=== PATIENT | female | born 1945 | race Caucasian/White ===

== ENCOUNTER 2024-01-05 07:56 | Inpatient (IN) | payer OTHER ==
[~2024-01-05] VITALS: Ht 162.6 cm; Wt 72.0 kg
[~2024-01-05 07:56] MED LIST: AMLO1TAB23 PO; ATOR10TA PO; CHOL20004 PO; HYDR-4072 PO; IBUP-1456 PO; LOSA-534 PO; MONT-8 OR; OMEP-448 PO; SERT-206 PO; ZINC50TA7 PO
[2024-01-05] MEDS ORDERED: HYDROmorphone HCL 2 MG/ML VL/or syr ONE (10:25)
[2024-01-05] MEDS ORDERED: fentaNYL CITRATE 100 MCG/2 ML VL ONE ×2 (10:26→15:48)
[2024-01-05] MEDS ORDERED: GLYCOPYRROLATE 0.2 MG/ML 1ML VIAL ONE (10:26)
[2024-01-05] MEDS ORDERED: ROCURONIUM 10MG/ML 10ML VIAL IV ONE ×2 (10:26→13:52)
[2024-01-05] MEDS ORDERED: KETOROLAC TROMETH 30 MG/ML 1ML VIAL ONE (10:26)
[2024-01-05] MEDS ORDERED: ONDANSETRON HCL 4 MG/2 ML VIAL ONE (10:26)
[2024-01-05] MEDS ORDERED: MIDAZOLAM HCL 2MG/2ML 2ml VIAL (1mg/ml) ONE (10:26)
[2024-01-05] MEDS ORDERED: LIDOCAINE 1% INJ PF 5ML AMP ONE (10:26)
[2024-01-05] MEDS ORDERED: ePHEDrine SULFATE 50 MG/ML AMP ONE (10:26)
[2024-01-05] MEDS ORDERED: DexAMETHasone SOD PHOS 10MG/1ML VIAL INJ ONE (10:26)
[2024-01-05] MEDS: TRANEXAMIC ACID 20 ML ONE (10:28)
[2024-01-05] MEDS: PROPOFOL 100 ML IV ONE (10:28)
[2024-01-05] MEDS: LIDOCAINE W/ EPINEPHRINE 1% 20ML VIAL ONE (10:28)
[2024-01-05] MEDS ORDERED: KETAMINE 50mg/ML 1ml syringe ONE (10:31)
[2024-01-05] MEDS ORDERED: SUGAMMADEX 200mg/2ml Vial (100MG/ML) IV ONE (10:32)
[2024-01-05] MEDS: levoFLOXacin 750MG 150 ML IV ONE (10:45)
[2024-01-05] MEDS ORDERED: NITROGLYCERIN 0.4 MG SL TAB SL PRN (16:30)
[2024-01-05] MEDS ORDERED: ACETAMINOPHEN 325 MG TAB PO PRN (16:30)
[2024-01-05] MEDS ORDERED: MORPHINE SULFATE INJ 2 MG/ml SYRG IV PRN (16:30)
[2024-01-05 16:54] VITALS: O2SAT 93
[2024-01-05] MEDS: METOCLOPRAMIDE HCL 5MG/ml INJ 2ml VIAL IV ONE (17:00)
[2024-01-05] MEDS ORDERED: HYDROmorphone HCL 2 MG/ML VL/or syr IV PRN (17:00)
[2024-01-05] MEDS ORDERED: fentaNYL CITRATE 100 MCG/2 ML VL IV PRN (17:00)
[2024-01-05] MEDS: HYDROmorphone HCL 2 MG/ML VL/or syr ONE (17:05)
[2024-01-05] MEDS: HYDROmorphone HCL 2 MG/ML VL/or syr IV PRN (17:05)
[2024-01-05] MEDS: MORPHINE SULFATE INJ 2 MG/ml SYRG IV PRN ×2 (17:21→20:54)
[2024-01-05 18:30] VITALS: BP 147/71; PULSE 86; RESP 17; TEMP 97.6; O2SAT 96
[2024-01-05 19:37] LABS: Hematocrit 33.7 % (36.0-46.0); Hemoglobin 11.1 g/dL (12.2-16.2)
[2024-01-05 19:47] VITALS: PULSE 86; RESP 17
[2024-01-05 20:00] VITALS: PULSE 87; PULSE 95; RESP 16; O2SAT 97
[2024-01-05 21:00] VITALS: BP 133/37; PULSE 95; RESP 16; TEMP 97.5; O2SAT 97
[2024-01-05] MEDS: D5W/SOD CHLO 0.9% 1,000 ML IV SCH (21:20)
[2024-01-05] MEDS: ceFAZolin 1GM/50ML 50 ML IV SCH (21:35)
[2024-01-05] MEDS: DOCUSATE SOD 100 MG CAP PO SCH (21:37)
[2024-01-06] VITALS (8 sets, daily range): BP systolic 103–157; BP diastolic 54–75; PULSE 61–82; RESP 16–18; TEMP 97.6–98.5; O2SAT 92–99
[2024-01-06] MEDS: HYDROcodone-ACET 10/325MG TAB PO PRN (00:17)
[2024-01-06] MEDS: CYCLOBENZAPRINE HCL 10 MG TAB PO SCH (14:30)
[2024-01-06] MEDS: CYCLOBENZAPRINE HCL 10 MG TAB PO ONE (14:35)
[2024-01-06] MEDS ORDERED: CYCLOBENZAPRINE HCL 10 MG TAB PO SCH (22:00)
[2024-01-06] MEDS: SENNA 8.6 MG TAB PO SCH (22:05)
[2024-01-07] VITALS (7 sets, daily range): BP systolic 123–173; BP diastolic 44–57; PULSE 69–76; RESP 16–18; TEMP 97.7–98.6; O2SAT 90–94
[2024-01-07 06:55] LABS: Basophils # (auto) 0 10 ^3/uL (0-0.2); Basophils % (auto) 0.3 % (0.0-2.0); Eosinophils # (auto) 0.1 10 ^3/uL (0-0.8); Eosinophils % (auto) 0.5 % (0.0-7.0); Hematocrit 26.5 % (36.0-46.0); Hemoglobin 9.2 g/dL (12.2-16.2); Lymphocytes # (auto) 1.8 10 ^3/uL (0.4-5.4); Mean Corpuscular Hemoglobin 31.1 pg (28.0-32.0); Mean Corpuscular Hgb Conc. 34.5 g/dL (32.0-36.0); Mean Corpuscular Volume 90.2 fL (80.0-100.0); Monocytes # (auto) 1.1 10 ^3/uL (0-1.3); Monocytes % (auto) 11.8 % (0.0-12.0); Neutrophils # (auto) 6.5 10 ^3/uL (1.6-8.6); Neutrophils % (auto) 68.4 % (37.0-80.0); Red Blood Cells 2.94 10^6/uL (4.0-5.20); Red Cell Distribution Width 14.2 % (11.8-14.3); White Blood Cell 9.5 10^3/uL (4.4-10.8)
[2024-01-07 07:16] LABS: Anion Gap 4 (5-15); Calcium 9.1 mg/dL (8.5-10.1); Carbon Dioxide 27 mmol/L (20-30); Chloride 108 mmol/L (98-107); Potassium 3.1 mmol/L (3.5-5.1); Sodium 139 mmol/L (136-145)
[2024-01-07 07:21] LABS: Glucose 115 mg/dL (74-106); Magnesium 1.9 mg/dL (1.6-2.6)
[2024-01-07 07:22] LABS: BUN/Creatinine Ratio 11.6 (10.0-20.0); Blood Urea Nitrogen 8 mg/dL (9-23)
[2024-01-07] MEDS: CARISOPRODOL 350 MG TAB PO SCH (09:26)
[2024-01-07] MEDS: amLODIPine BESYLATE 5 MG TAB PO SCH (09:26)
[2024-01-07] MEDS: MONTELUKAST SODIUM 10 MG TAB PO SCH (09:27)
[2024-01-07] MEDS: DOCUSATE SOD 100 MG CAP PO PRN (09:27)
[2024-01-07] MEDS: PANTOPRAZOLE 40 MG TAB PO SCH (09:27)
[2024-01-07] MEDS: SERTRALINE HCL 50 MG TAB PO SCH (09:27)
[2024-01-07] MEDS: LOSARTAN POTASSIUM 50 MG TAB PO SCH (09:28)
[2024-01-07] MEDS ORDERED: HYDROcodone-ACET 10/325MG TAB PO PRN (11:30)
[2024-01-07] MEDS: HYDROcodone-ACET 10/325MG TAB PO PRN (12:03)
[2024-01-07] MEDS: POTASSIUM EFFERVESENT TAB 25 MEQ PO ONE (12:03)
[2024-01-07] MEDS: FERROUS SULFATE 300 MG/5 ML ORAL LIQ PO SCH (18:07)
[2024-01-07] MEDS: ceFAZolin 2 GM/D5W50ml 50 ML IV ONE (18:17)
[2024-01-07] MEDS: SENNA 8.6 MG TAB PO SCH (21:24)
[2024-01-07] MEDS: ATORVASTATIN 20 MG TAB PO SCH (21:28)
[2024-01-07 23:17] LABS: Urine Bacteria None Seen /hpf (None Seen)
[2024-01-07 23:33] LABS: Urine Blood Negative /uL (Negative); Urine Clarity Clear (Clear); Urine Color Light-Yellow (Yellow); Urine Protein, UAD Negative (Negative); Urine Specific Gravity 1.013 (1.001-1.035); Urine Urobilinogen Normal (Negative); Urine WBC 3 /hpf (0 - 5)
[2024-01-08] VITALS (10 sets, daily range): BP systolic 128–160; BP diastolic 47–71; PULSE 58–85; RESP 14–20; TEMP 97.7–98.2; O2SAT 90–100
[2024-01-08 06:10] LABS: Hematocrit 27.3 % (36.0-46.0); Hemoglobin 9.2 g/dL (12.2-16.2)
[2024-01-08 06:35] LABS: Calcium 8.9 mg/dL (8.7-10.4); Chloride 103 mmol/L (98-107); Potassium 3.7 mmol/L (3.5-5.1); Sodium 137 mmol/L (136-145)
[2024-01-08 06:36] LABS: Anion Gap 7 (5-15); Carbon Dioxide 27 mmol/L (20-30)
[2024-01-08 06:41] LABS: BUN/Creatinine Ratio 15.2 (10.0-20.0); Blood Urea Nitrogen 10 mg/dL (9-23); Glucose 116 mg/dL (74-106)
[2024-01-08] MEDS: CARISOPRODOL 350 MG TAB PO PRN (16:16)
[2024-01-08] MEDS: ONDANSETRON HCL 4 MG/2 ML VIAL IV PRN (23:07)
[2024-01-09] VITALS (8 sets, daily range): BP systolic 122–146; BP diastolic 37–58; PULSE 67–79; RESP 18–20; TEMP 97.7–98.8; O2SAT 90–99
[2024-01-09 08:03] LABS: Alanine Aminotransferase 14 U/L (7-40); Albumin 3.6 g/dL (3.2-4.8); Alkaline Phosphatase 108 U/L (46-116); Anion Gap 5 (5-15); Aspartate Aminotransferase 15 U/L (13-40); BUN/Creatinine Ratio 13.3 (10.0-20.0); Bilirubin, Total 0.5 mg/dL (0.2-1.0); Blood Urea Nitrogen 8 mg/dL (9-23); Calcium 8.7 mg/dL (8.5-10.1); Carbon Dioxide 28 mmol/L (20-30); Chloride 101 mmol/L (98-107); Glucose 88 mg/dL (74-106); Potassium 3.5 mmol/L (3.5-5.1); Sodium 134 mmol/L (136-145); Total Protein 5.6 g/dL (5.7-8.2)
[2024-01-09] MEDS ORDERED: CARI-579 PO (12:31)
[2024-01-09] MEDS ORDERED: HYDR-4902 PO (12:31)
[2024-01-09] MEDS ORDERED: DOCU-265 PO (12:31)
[2024-01-09 14:32] LABS: Base Excess 0.9 mmol/L (-2.0-2.0)
[2024-01-09] MEDS: CYCLOBENZAPRINE HCL 10 MG TAB PO SCH (15:04)
[2024-01-09] MEDS ORDERED: IOHEXOL 350 MG/ML 100ML IJ ONE (20:00)
[2024-01-10] VITALS (9 sets, daily range): BP systolic 111–137; BP diastolic 38–70; PULSE 61–78; RESP 16–20; TEMP 97.7–98.4; O2SAT 96–100
[2024-01-11 01:23] VITALS: BP 132/71; PULSE 75; RESP 18; TEMP 97.8; O2SAT 99
[2024-01-11 05:00] VITALS: BP 129/53; PULSE 60; RESP 18; TEMP 97.9; O2SAT 99
[2024-01-11 08:00] VITALS: PULSE 63; PULSE 74; RESP 20
[2024-01-11 09:16] VITALS: BP 117/36; PULSE 67; RESP 20; TEMP 97.8; O2SAT 97
== END 2024-01-11 11:30 | disposition home health service (06) | DRG 460 ==
LOC: SUR 07:56 → TELE 16:22 → TELE-EAST 18:52
PROVIDERS: ADMIT Orthopaedic Surgery; ATTEND Internal Medicine
PROC: 0SG1071 Fusion of 2 or more Lumbar Vertebral Joints with Autologous Tissue Substitute, Posterior Approach, Posterior Column, Open Approach (ICD-10-PCS; 2024-01-05)
PROC: 01NB0ZZ Release Lumbar Nerve, Open Approach (ICD-10-PCS; 2024-01-05)
PROC: 00NY0ZZ Release Lumbar Spinal Cord, Open Approach (ICD-10-PCS; 2024-01-05)
PROC: 4A11X4G Monitoring of Peripheral Nervous Electrical Activity, Intraoperative, External Approach (ICD-10-PCS; 2024-01-05)
PROC: 0QP004Z Removal of Internal Fixation Device from Lumbar Vertebra, Open Approach (ICD-10-PCS; principal; 2024-01-05 12:20)
DX: M48.061 Spinal stenosis, lumbar region without neurogenic claudication (principal); M96.1 Postlaminectomy syndrome, not elsewhere classified; E78.00 Pure hypercholesterolemia, unspecified; J45.909 Unspecified asthma, uncomplicated; F32.A Depression, unspecified; M47.26 Other spondylosis with radiculopathy, lumbar region; E87.6 Hypokalemia; D64.89 Other specified anemias; Z79.891 Long term (current) use of opiate analgesic; Z79.899 Other long term (current) drug therapy
CPT/HCPCS: 36415; 36600; 71275; 72100; 76000; 80048; 80053; 81001; 82805; 83735; 85014; 85018; 85025; 86850; 86900; 86901; 97110; 97116; 97163; 97530; G0378; J1100; J1885; J2250; J2405; J2704; J7042

== ENCOUNTER 2025-02-22 12:25 | Inpatient (IN) | payer OTHER ==
[~2025-02-22] VITALS: Ht 160 cm; Wt 67.5 kg
[~2025-02-22 12:25] MED LIST changes: +DOCU-265 PO; +HYDR-4902 PO
--- NOTE | 2025-02-22 12:47 | ED.PDOC ---
History of Present Illness HPI Comments This is an 79-year-old female who comes in with chief complaint of shortness a breath with cough and chest pressure. The patient was also having headache. The patient has had a fever off and on for the past two weeks. And the highest temperature was measured at 102.9. The patient's cough is productive with yellow sputum. She denies any recent travel out of the country. She denies any nausea or vomiting. The patient is also having a generalized headache. She was able to ambulate into the emergency department's without any difficulty. Chief Complaint: Shortness of Breath Time Seen by MD: 12:29 Reviewed Notes: Nurses Notes, Medications, Allergies (No allergies to medications) Allergies: Coded Allergies: NO KNOWN ALLERGIES (Unverified , 12/30/23) Home Meds Active Scripts Hydrocodone-Acetaminophen (Hydrocodone Bitartrate/AC 5-325 mg) 1 Tab Tab, 1 TAB PO Q8HPRN PRN for 7 Days, #21 TAB Prov:GARRETT BLANTON SWITCHBOARD INSTALLER 01/09/24 Docusate Sodium (Docusate Sodium) 100 Mg Cap, 100 MG PO BID PRN for 10 Days, #20 CAP Prov:GARRETT BLANTON SWITCHBOARD INSTALLER 01/09/24 Reported Medications Hydrocodone-Acetaminophen (Hydrocodone/Acetaminophen 10-325 mg) 1 Tab Tab, 1 TAB PO PRN, TAB 12/30/23 Cholecalciferol (D3) 50 Mcg Cap, 50 MCG PO DAILY, CAP 12/30/23 Zinc Gluconate (Zinc) 50 Mg Tab, 50 MG PO DAILY, TAB 12/30/23 Ibuprofen (Ibuprofen) 800 Mg Tab, 800 MG PO PRN, TAB 12/30/23 Omeprazole (Omeprazole Dr) 40 Mg Cap, 40 MG PO DAILY, CAP 12/30/23 Amlodipine Besylate (Amlodipine Besylate) 10 Mg Tab, 10 MG PO DAILY, TAB 12/30/23 Atorvastatin Calcium (Lipitor) 10 Mg Tab, 10 MG PO DAILY, TAB 12/30/23 Sertraline Hcl (Sertraline Hcl) 50 Mg Tab, 50 MG PO DAILY, TAB 12/30/23 Montelukast Sodium (MONTELUKAST SODIUM) 10 Mg Tab, 10 MG OR DAILY, TAB 12/30/23 Losartan Potassium (Losartan Potassium) 50 Mg Tab, 50 MG PO DAILY, TAB 12/30/23 Information Source: Patient Mode of Arrival: Ambulatory Severity: Moderate Timing: Weeks Duration: Since onset Prehospital treatment: None Associated signs and symptoms Associated productive cough with chest pain and fever Past Medical History PAST MEDICAL HISTORY: HTN Surgical History: Appendectomy, Hysterectomy, Tonsillectomy Surgical History (Other): Left knee surgery, cataract surgery, right shoulder surgery, right hip surgery, back surgery BUS COMPANY MANAGER History: No Pertinent BUS COMPANY MANAGER History Family History Family History: Family hx of Cancer Social History Smoker: Non-Smoker Alcohol: Occasionally Drugs: Denies Drug Use Lives In: Home Constitutional: reports: fever, weakness; denies: chills, diaphoresis, fatigue, malaise, sweats, others EENTM: denies: blurred vision, double vision, ear bleeding, ear discharge, ear drainage, ear pain, ear ringing, eye pain, eye redness, hearing loss, mouth pain, mouth swelling, nasal discharge, nose bleeding, nose congestion, nose pain, photophobia, tearing, throat pain, throat swelling, voice changes, others Respiratory: reports: cough, shortness of breath; denies: hemoptysis, orthopnea, SOB at rest, SOB with excertion, stridor, wheezing, others Cardiovascular: reports: chest pain; denies: dizzy spells, diaphoresis, Dyspnea on exertion, edema, irregular heart beat, left arm pain, lightheadedness, palpitations, PND, syncope, others Gastrointestinal: denies: abdomen distended, abdominal pain, blood streaked bowels, constipated, diarrhea, dysphagia, difficulty swallowing, hematemesis, melena, nausea, poor appetite, poor fluid intake, rectal bleeding, rectal pain, vomiting, others Genitourinary: denies: abnormal vagina bleeding, burning, dyspareunia, dysuria, flank pain, frequency, hematuria, incontinence, pain, , vagina discharge, urgency, others Neurological: reports: headache; denies: dizziness, fainting, left sided numbness, left sided weakness, numbness, paresthesia, pre-existing deficit, right sided numbness, right sided weakness, seizure, speech problems, tingling, tremors, weakness, others Musculoskeletal: denies: back pain, gout, joint pain, joint swelling, muscle pain, muscle stiffness, neck pain, others Integumetry: denies: bruises, change in color, change in hair/nails, dryness, laceration, lesions, lumps, rash, wounds, others Allergic/Immunocompromised: denies: Difficulty Healing, Frequent Infections, Hives, Itching, others Hematologic/Lymphatic: denies: anemia, blood clots, easy bleeding, easy bruising, swollen glands, others Endocrine: denies: excessive hunger, excessive sweating, excessive thirst, excessive urination, flushing, intolerance to cold, intolerance to heat, unexplained weight gain, unexplained weight loss, others Psychiatric: denies: anxiety, bipolar disorder, depression, hopeless, panic disorder, schizophrenia, sleepless, suicidal, others Physical Exam General Appearance: Moderate Distress HEENT: Normal ENT Inspection, Pharynx Normal, TMs Normal Neck: Full Range of Motion, Non-Tender, Normal, Normal Inspection Respiratory: Accessory Muscle Use, Chest Non-Tender, Decreased Breath Sounds, Respiratory Distress, Wheezing Cardiovascular: No Edema, No JVD, No Murmur, No Gallop, Regular Rate/Rhythm Breast Exam: Deferred Gastrointestinal: No Organomegaly, Non Tender, No Pulsatile Mass, Normal Bowel Sounds, Soft Genitalia: Deferred Pelvic: Deferred Rectal: Deferred Extremities: No calf tenderness, Normal capillary refill, Normal inspection, Normal range of motion, Non-tender, No pedal edema Musculoskeletal : Apperance: Normal Neurologic: Alert, rn spine II-XII nml as Tested, No Motor Deficits, Normal Affect, Normal Mood, No Sensory Deficits Cerebellar Function: Normal Reflexes: Normal Skin: Dry, Normal Color, Warm Lymphatic: No Adenopathy Was a procedure done? Was a procedure done?: No EKG EKG : Pulse Rate (adult): 74 [place]: Normal Cardiac Rhythm: NSR Block: None ST: Nonsp Differential Dx Considerations may include: Bronchitis, no pneumonia, generalized weakness, CHF, RI X-Ray, Labs, Meds, VS Vital Signs Date Time Temp Pulse Resp B/P (MAP) Pulse Ox O2 Delivery O2 Flow Rate FiO2 02/22/25 13:14 18 94 Room Air* 0 21 02/22/25 12:47 74 02/22/25 12:39 74 02/22/25 12:26 97.8 77 18 145/65 93 97.8 Lab Test 02/22/25 14:00 02/22/25 13:04 Range/Units Troponin I High Sensitivity 6 9 </=34 ng/L White Blood Count 12.7 H 4.4-10.8 10^3/uL Red Blood Count 4.55 4.0-5.20 10^6/uL Hemoglobin 13.3 12.2-16.2 g/dL Hematocrit 38.8 36.0-46.0 % Mean Corpuscular Volume 85.3 80.0-100.0 fL Mean Corpuscular Hemoglobin 29.2 28.0-32.0 pg Mean Corpuscular Hemoglobin Concent 34.2 32.0-36.0 g/dL Red Cell Distribution Width 16.0 H 11.8-14.3 % Platelet Count 479 H 140-450 10^3/uL Mean Platelet Volume 6.9 6.9-10.8 fL Neutrophils (%) (Auto) 82.7 H 37.0-80.0 % Lymphocytes (%) (Auto) 7.2 L 10.0-50.0 % Monocytes (%) (Auto) 9.3 0.0-12.0 % Eosinophils (%) (Auto) 0.6 0.0-7.0 % Basophils (%) (Auto) 0.2 0.0-2.0 % Neutrophils # (Auto) 10.5 H 1.6-8.6 10 ^3/uL Lymphocytes # (Auto) 0.9 0.4-5.4 10 ^3/uL Monocytes # (Auto) 1.2 0-1.3 10 ^3/uL Eosinophils # (Auto) 0.1 0-0.8 10 ^3/uL Basophils # (Auto) 0 0-0.2 10 ^3/uL Nucleated Red Blood Cells 0.1 % Sodium Level 134 L 136-145 mmol/L Potassium Level 3.3 L 3.5-5.1 mmol/L Chloride Level 104 98-107 mmol/L Carbon Dioxide Level 18 L 20-31 mmol/L Anion Gap 12 5-15 Blood Urea Nitrogen 13 9-23 mg/dL Creatinine 1.19 H 0.550-1.02 mg/dL Glomerular Filtration Rate Calc 46 >90 mL/min BUN/Creatinine Ratio 10.9 10.0-20.0 Serum Glucose 131 H 74-106 mg/dL Calcium Level 8.9 8.7-10.4 mg/dL B-Type Natriuretic Peptide 216.37 0-100 pg/mL Current Medications Medications (Trade) Dose Ordered Sig/Kennedi Route Start Time Stop Time Status Last Admin Methylprednisolone Sodium Succinate (Solu Medrol) 125 mg ONCE ONCE IV 02/22/25 12:45 02/22/25 12:46 DC 02/22/25 14:20 Ipratropium [place] (Atrovent Medneb) 1 mg ONCE ONCE HHN 02/22/25 12:45 02/22/25 12:46 DC 02/22/25 13:13 Albuterol (Ventolin Medneb) 20 mg ONCE ONCE HHN 02/22/25 12:45 02/22/25 12:46 DC 02/22/25 13:13 Levofloxacin/ Dextrose 100 ml @ 100 mls/hr ONCE ONCE IV 02/22/25 13:45 02/22/25 14:44 DC 02/22/25 14:20 IV Hep-Lock was established. The patient was given Solu-Medrol 125 mg IV push The patient was given a continuous breathing treatment of albuterol and Atrovent Multifocal pneumonia. At this time the BNP is within normal limits. The chemistry panel shows hypokalemia at 3.3 The CBC shows an elevated white blood cell count of 12.7 The troponin level x2 is within normal limits We did speak with the hospitalist and the patient is being admitted with a diagnosis of most likely new onset COPD The patient is only saturating 93% on room air The patient is not on any home oxygen The patient is being admitted this time. Images Reviewed?: Images reviewed and evaluated by me Time of 1ST Reevaluation: 12:46 Reevaluation 1ST: Unchanged Patient Education/Counseling: Diagnosis, Treatment, Prognosis Family Education/Counseling: No Family Present SEPSIS Sepsis Screen Date sepsis recognized/suspect: Feb 22, 2025 Time Sepsis recognized/suspect: 6 Recent Procedure: No On Antibiotic Therapy: No Respiratory Rate >20: No Heart Rate >90: No Temp<36 C (96.8 F) or >38.3 C: No SBP <90 or MAP <65 mmHG: No New Acute Mental Status Change: No Is the patient on CPAP, BIPAP,: No Physician Orders Med Neb Initial Treatment (02/22/25 12:39) Heplock Iv (02/22/25 12:39) Pulse Oximetry (02/22/25 12:39) Residential Real Estate Sales Manager (02/22/25 12:39) Blood Pressure (02/22/25 12:39) Chest Two Views Routine (02/22/25 12:39) Electrocardigram (02/22/25 12:39) Covid19 Antigen Destiny (02/22/25 ) Rapid Influenza A&B (02/22/25 12:39) Troponin-I Hs (02/22/25 15:39) Electrocardigram (02/22/25 13:39) Electrocardigram (02/22/25 15:39) Vital Signs Date Time Temp Pulse Resp B/P (MAP) Pulse Ox O2 Delivery O2 Flow Rate FiO2 02/22/25 13:14 18 94 Room Air* 0 21 02/22/25 12:47 74 02/22/25 12:39 74 02/22/25 12:26 97.8 77 18 145/65 93 97.8 Laboratory Tests Test 02/22/25 13:04 White Blood Count 12.7 10^3/uL (4.4-10.8) H Medications Medications Dose Ordered Sig/Kennedi Route Start Time Stop Time Status Last Admin Dose Admin Albuterol 20 mg ONCE ONCE HHN 02/22/25 12:45 02/22/25 12:46 DC 02/22/25 13:13 Ipratropium [place] 1 mg ONCE ONCE HHN 02/22/25 12:45 02/22/25 12:46 DC 02/22/25 13:13 Levofloxacin/ Dextrose 100 ml @ 100 mls/hr ONCE ONCE IV 02/22/25 13:45 02/22/25 14:44 DC 02/22/25 14:20 Methylprednisolone Sodium Succinate 125 mg ONCE ONCE IV 02/22/25 12:45 02/22/25 12:46 DC 02/22/25 14:20 Departure 1 Departure Time of Disposition: 15:08 Impression: Primary Impression: Respiratory failure, acute Qualified Codes: J96.01 - Acute respiratory failure with hypoxia Additional Impression: COPD exacerbation Disposition: ADMITTED INPATIENT Admit to: Tele Condition: Fair Critical Care Note Critical Care Time?: Yes (35 min-critical care time only) Stability Stability form required: Yes Unstable for transfer: Telemetry monitoring (Telemetry monitoring required), ED Physician Assesment (Clinical assesment) Heart Score Heart Score: Heart Score Response (Comments) Value History Slightly Suspicious 0 EKG Normal 0 Age >65 2 Risk Factors 1 or 2 risk factors 1 Troponin Normal limit 0 Total 3 I personally scribed for GUI CAMPBELL MD ([email or web address]) on 02/22/25 at 14:18. Electronically submitted by Nancy Sun ([facility]). GUI CAMPBELL MD Feb 22, 2025 12:47
[2025-02-22] MEDS: ALBUTEROL SULF 2.5 MG/0.5ML(0.5%) NEB SOLN HHN ONE (13:13)
[2025-02-22] MEDS: IPRATROPIUM BROM 0.5 MG/2.5ML INH SOL HHN ONE (13:13)
--- NOTE | 2025-02-22 13:13 | DVH ---
EXAM: XY CHEST TWO VIEWS ROUTINE CLINICAL HISTORY: cough COMPARISON: CT CT ANGIO CHEST CONTRAST on DOS: 01/09/24 TECHNIQUE: Frontal and lateral view of the chest was obtained FINDINGS: Lines and Tubes: None Lungs: Multifocal consolidative opacities. Pleura: No effusion. No pneumothorax. Cardiomediastinal contours: Unremarkable. Atherosclerotic vascular calcifications of the thoracic ao rta are noted. Bones: No acute osseous abnormality. IMPRESSION: Multifocal pneumonia.
[2025-02-22 13:18] LABS: Hematocrit 38.8 % (36.0-46.0); Hemoglobin 13.3 g/dL (12.2-16.2); Mean Corpuscular Hemoglobin 29.2 pg (28.0-32.0); Mean Corpuscular Volume 85.3 fL (80.0-100.0); Nucleated Red Blood Cells % 0.1 %
[2025-02-22 13:29] LABS: Chloride 104 mmol/L (98-107)
[2025-02-22 13:30] LABS: Anion Gap 12 (5-15); Calcium 8.9 mg/dL (8.7-10.4); Carbon Dioxide 18 mmol/L (20-31); Potassium 3.3 mmol/L (3.5-5.1); Sodium 134 mmol/L (136-145)
[2025-02-22 13:35] LABS: BUN/Creatinine Ratio 10.9 (10.0-20.0); Blood Urea Nitrogen 13 mg/dL (9-23)
[2025-02-22 13:37] LABS: Glucose 131 mg/dL (74-106)
[2025-02-22] MEDS: methylPREDNISolone SOD SUCC 125 MG/2 ML VL IV ONE (14:20)
--- NOTE | 2025-02-22 14:37 | DVHHP2 ---
History of Present Illness History of Present Illness This is an 79-year-old female who comes in with chief complaint of shortness a breath with cough and chest pressure. The patient was also having headache. The patient has had a fever off and on for the past two weeks. And the highest temperature was measured at 102.9. The patient's cough is productive with yellow sputum. She denies any recent travel out of the country. She denies any nausea or vomiting. The patient is also having a generalized headache. She was able to ambulate into the emergency department's without any difficulty. Past Medical History Hypertension, hyperlipidemia Past Surgical History: Appendectomy, Hysterectomy, Tonsillectomy Smoke: No ALCOHOL: occassional Lives: with Family Review of Systems Review of Systems Complains of shortness for breath with a cough. Denies any headache dizziness or lightheadedness. Complains of feeling warm/fevers. Other review of systems reviewed normal. Allergies: Coded Allergies: NO KNOWN ALLERGIES (Unverified , 12/30/23) Medications Current Medications Medications Dose Ordered Sig/Kennedi Route Start Time Stop Time Status Last Admin Dose Admin Nitroglycerin 0.4 mg Q5MINP PRN SL 02/22/25 14:45 UNV Morphine Sulfate 2 mg Q30M PRN IV 02/22/25 14:45 UNV Azithromycin 250 ml @ 125 mls/hr DAILY IV 02/23/25 10:00 UNV Ceftriaxone Sodium 50 ml @ 100 mls/hr DAILY@09 IV 02/23/25 09:00 UNV Famotidine 40 mg Q12HR PO 02/22/25 22:00 UNV Ondansetron HCl 4 mg Q4HPRN PRN IV 02/22/25 14:45 UNV Morphine Sulfate 2 mg Q6HPRN PRN IV 02/22/25 14:45 UNV Acetaminophen 650 mg Q4HP PRN PO 02/22/25 14:45 UNV Enoxaparin Sodium 40 mg DAILY SC 02/23/25 10:00 UNV Albuterol 2.5 mg Q6HWA NEB 02/22/25 18:00 UNV Exam Vital Signs Vital Signs Date Time Temp Pulse Resp B/P (MAP) Pulse Ox O2 Delivery O2 Flow Rate FiO2 02/22/25 13:14 18 94 Room Air* 0 21 02/22/25 12:47 74 02/22/25 12:26 97.8 145/65 97.8 Exam Alert awake oriented to place and person. Comfortable in bed without acute distress. HEENT neck supple no JVD. Heart regular rate and rhythm S1 plus S2. Lungs fair air movement few rhonchi in the bases and slight expiratory wheezing noted. Chest equal expansion. Abdomen is soft nontender positive bowel sounds. Extremities no edema positive distal pedal pulses. Labs/Xrays Labs Test 02/22/25 14:00 02/22/25 13:04 Range/Units White Blood Count 12.7 H 4.4-10.8 10^3/uL Red Blood Count 4.55 4.0-5.20 10^6/uL Hemoglobin 13.3 12.2-16.2 g/dL Hematocrit 38.8 36.0-46.0 % Mean Corpuscular Volume 85.3 80.0-100.0 fL Mean Corpuscular Hemoglobin 29.2 28.0-32.0 pg Mean Corpuscular Hemoglobin Concent 34.2 32.0-36.0 g/dL Red Cell Distribution Width 16.0 H 11.8-14.3 % Platelet Count 479 H 140-450 10^3/uL Mean Platelet Volume 6.9 6.9-10.8 fL Neutrophils (%) (Auto) 82.7 H 37.0-80.0 % Lymphocytes (%) (Auto) 7.2 L 10.0-50.0 % Monocytes (%) (Auto) 9.3 0.0-12.0 % Eosinophils (%) (Auto) 0.6 0.0-7.0 % Basophils (%) (Auto) 0.2 0.0-2.0 % Neutrophils # (Auto) 10.5 H 1.6-8.6 10 ^3/uL Lymphocytes # (Auto) 0.9 0.4-5.4 10 ^3/uL Monocytes # (Auto) 1.2 0-1.3 10 ^3/uL Eosinophils # (Auto) 0.1 0-0.8 10 ^3/uL Basophils # (Auto) 0 0-0.2 10 ^3/uL Nucleated Red Blood Cells 0.1 % Sodium Level 134 L 136-145 mmol/L Potassium Level 3.3 L 3.5-5.1 mmol/L Chloride Level 104 98-107 mmol/L Carbon Dioxide Level 18 L 20-31 mmol/L Anion Gap 12 5-15 Blood Urea Nitrogen 13 9-23 mg/dL Creatinine 1.19 H 0.550-1.02 mg/dL Glomerular Filtration Rate Calc 46 >90 mL/min BUN/Creatinine Ratio 10.9 10.0-20.0 Serum Glucose 131 H 74-106 mg/dL Calcium Level 8.9 8.7-10.4 mg/dL B-Type Natriuretic Peptide 216.37 0-100 pg/mL SEPSIS Sepsis Screen Date sepsis recognized/suspect: Feb 22, 2025 Time Sepsis recognized/suspect: 1225 Recent Procedure: No On Antibiotic Therapy: No Respiratory Rate >20: No Heart Rate >90: No Temp<36 C (96.8 F) or >38.3 C: No SBP <90 or MAP <65 mmHG: No New Acute Mental Status Change: No Is the patient on CPAP, BIPAP,: No Physician Orders Med Neb Initial Treatment (02/22/25 12:39) Heplock Iv (02/22/25 12:39) Pulse Oximetry (02/22/25 12:39) Photographer Aerial (02/22/25 12:39) Blood Pressure (02/22/25 12:39) Chest Two Views Routine (02/22/25 12:39) Electrocardigram (02/22/25 12:39) Covid19 Antigen Destiny (02/22/25 ) Rapid Influenza A&B (02/22/25 12:39) Troponin-I Hs (02/22/25 13:39) Troponin-I Hs (02/22/25 15:39) Electrocardigram (02/22/25 13:39) Electrocardigram (02/22/25 15:39) Levofloxacin 500mg (Levaquin 500mg/ 100m (02/22/25 13:45) Admit (02/22/25 14:31) *Consult / (02/22/25 14:31) Pt Request For Service (02/22/25 14:31) Nitroglycerin Sublingual (Ntrostat Subli (02/22/25 14:45) Morphine Sulfate Injection (02/22/25 14:45) Stat Ekg For Chest Pain (02/22/25 14:31) Notify Md Of Changes From Base (02/22/25 14:31) Emergency Dysrhythmia Protocol (02/22/25 14:31) Oxygen By Nasal Cannula (02/22/25 14:31) Azithromycin 500mg/ 250ml (Zithromax 50 (02/23/25 10:00) Acetaminophen Tablet (Tylenol Tablet) (02/22/25 14:45) Enoxaparin Sodium (Lovenox) (02/23/25 10:00) Albuterol Medneb (Ventolin Medneb) (02/22/25 18:00) Ceftriaxone 1gm/50ml D5w (Rocephin) (02/23/25 09:00) Famotidine Tablet (Pepcid Tablet) (02/22/25 22:00) Ondansetron Hcl (Zofran) (02/22/25 14:45) Morphine Sulfate Injection (02/22/25 14:45) Rapid Influenza A&B (02/22/25 14:34) Docusate Sodium Capsule (Colace Capsule) (02/22/25 14:45) Hydrocodone-Acet 5/325mg Tab ([place] 5/32 (02/22/25 14:45) Losartan Tablet (Cozaar Tablet) (02/23/25 10:00) Montelukast Tablet (Singulair Tablet) (02/23/25 10:00) Sertraline Hcl (Zoloft) (02/23/25 10:00) Amlodipine Tablet (Norvasc Tablet) (02/23/25 10:00) Vital Signs Date Time Temp Pulse Resp B/P (MAP) Pulse Ox O2 Delivery O2 Flow Rate FiO2 02/22/25 13:14 18 94 Room Air* 0 21 02/22/25 12:47 74 02/22/25 12:39 74 02/22/25 12:26 97.8 77 18 145/65 93 97.8 Laboratory Tests Test 02/22/25 13:04 White Blood Count 12.7 10^3/uL (4.4-10.8) H Medications Medications Dose Ordered Sig/Kennedi Route Start Time Stop Time Status Last Admin Dose Admin Albuterol 20 mg ONCE ONCE N 02/22/25 12:45 02/22/25 12:46 DC 02/22/25 13:13 20 MG Ipratropium [place] 1 mg ONCE ONCE N 02/22/25 12:45 02/22/25 12:46 DC 02/22/25 13:13 1 MG Levofloxacin/ Dextrose 100 ml @ 100 mls/hr ONCE ONCE IV 02/22/25 13:45 02/22/25 14:44 02/22/25 14:20 100 MLS/HR Methylprednisolone Sodium Succinate 125 mg ONCE ONCE IV 02/22/25 12:45 02/22/25 12:46 DC 02/22/25 14:20 125 MG Assessment/Plan Assessment/Plan Acute hypoxic respiratory failure Dependence on supplemental oxygen Pneumonia, likely GNR Atelectasis Hypokalemia Metabolic acidosis Seasonal allergies We will admit her to hospital. To her for her possible community-acquired pneumonia based on her presentation and chest x-ray findings with the IV antibiotics. Oral steroids. Breathing treatments. Resume home medications. Pulmonary consultation. Continue rest of supportive care and treatment. Keep oxygenation above 92%. Otherwise further clinical management per clinical course and recommendations from the consultants. Plan discussed with: Other My Orders Orders - AGUSTÍN REEVES MD Procedure Category Date Status Time Admit ADMIT 02/22/25 Transmitted 14:31 *Consult CONS 02/22/25 Transmitted / 14:31 Pt Request For Service PT 02/22/25 Logged 14:31 Nitroglycerin PHA 02/22/25 Logged Sublingual (Ntrostat 14:45 Morphine Sulfate PHA 02/22/25 Logged Injection 14:45 Stat Ekg For Chest IRENE 02/22/25 In Process Pain 14:31 Notify Of Changes [facility] 02/22/25 In Process From Base 14:31 Emergency Dysrhythmia [facility] 02/22/25 In Process Protocol 14:31 Oxygen By Nasal RT 02/22/25 Transmitted Cannula 14:31 Azithromycin 500mg/ PHA 02/23/25 Logged 250ml (Zithromax 50 10:00 Acetaminophen Tablet PHA 02/22/25 Logged (Tylenol Tablet) 14:45 Enoxaparin Sodium PHA 02/23/25 Logged (Lovenox) 10:00 Albuterol Medneb PHA 02/22/25 Logged (Ventolin Medneb) 18:00 Ceftriaxone 1gm/50ml PHA 02/23/25 Logged D5w (Rocephin) 09:00 Famotidine Tablet PHA 02/22/25 Logged (Pepcid Tablet) 22:00 Ondansetron Hcl PHA 02/22/25 Logged (Zofran) 14:45 Morphine Sulfate PHA 02/22/25 Logged Injection 14:45 Rapid Influenza A&B LAB 02/22/25 Logged 14:34 Docusate Sodium PHA 02/22/25 Transmitted Capsule (Colace 14:45 Hydrocodone-Acet PHA 02/22/25 Transmitted 5/325mg Tab ([place] 14:45 Losartan Tablet PHA 02/23/25 Transmitted (Cozaar Tablet) 10:00 Montelukast Tablet PHA 02/23/25 Transmitted (Singulair Tablet) 10:00 Sertraline Hcl PHA 02/23/25 Transmitted (Zoloft) 10:00 Amlodipine Tablet PHA 02/23/25 Transmitted (Norvasc Tablet) 10:00 Problem List: (1) Respiratory failure, acute (2) CAP (community acquired pneumonia) AGUSTÍN REEVES MD Feb 22, 2025 14:37
[2025-02-22] MEDS ORDERED: DOCUSATE SOD 100 MG CAP PO PRN (14:45)
[2025-02-22] MEDS ORDERED: MORPHINE SULFATE INJ 2 MG/ml SYRG IV PRN (14:45)
[2025-02-22] MEDS ORDERED: ACETAMINOPHEN 325 MG TAB PO PRN (14:45)
[2025-02-22] MEDS ORDERED: NITROGLYCERIN 0.4 MG SL TAB SL PRN (14:45)
[2025-02-22] MEDS ORDERED: ONDANSETRON HCL 4 MG/2 ML VIAL IV PRN (14:45)
[2025-02-22 15:37] VITALS: BP 145/65; PULSE 74; RESP 18; TEMP 97.8; O2SAT 94
[2025-02-22] MEDS: FAMOTIDINE 20 MG TAB PO SCH (15:52)
[2025-02-22] MEDS: ALBUTEROL SULF 2.5 MG/0.5ML(0.5%) NEB SOLN NEB SCH (18:53)
[2025-02-22 21:46] LABS: Urine Budding Yeast OCCASIONAL /hpf (None Seen); Urine Protein, UAD 1+ (Negative)
--- NOTE | 2025-02-22 23:25 | DVHINCON2 ---
Date of service: Feb 22, [address] Urias Reason for Consultation Acute hypoxic respiratory failure and pneumonia. History of Present Illness This is an 79-year-old woman with past medical history of hypertension who presents to ED today with chief complaint of shortness of breath with productive cough and chest pressure. The patient also c/o headache. The patient has had a fever off and on for the past 2 weeks, highest temperature measured at 102.9. Cough is productive with yellow sputum. She denies any recent travel out of the country. No nausea or vomiting. Patient was able to ambulate into the ED without any difficulty. She was admitted for further care, and pulmonary consultation is requested for evaluation and management of acute hypoxic respiratory failure and pneumonia. Review of Systems: 14-point review of systems negative unless otherwise noted above. Past Medical History: Hypertension Past Surgical History: Left knee surgery, cataract surgery, right shoulder surgery, right hip surgery, back surgery. Appendectomy, Hysterectomy, Tonsillectomy. Medications: Reviewed. Allergies: No known drug allergies. Family History: Family hx of Cancer Social History: Nonsmoker. Occasional alcohol use. No illicit drug use. Family History: FH: pancreatic cancer G8 MOTHER, Allergies: Coded Allergies: NO KNOWN ALLERGIES (Unverified , 12/30/23) Home Meds Active Scripts Dextromethorphan-Guaifenesin (Robitussin-Dm) 10 Ml Sr, 10 ML PO Q6HPRN PRN, #240 ML Prov:AGUSTÍN REEVES MD 02/25/25 Cefdinir (Cefdinir) 300 Mg Cap, 1 CAP PO BID, #20 CAP Prov:AGUSTÍN REEVES MD 02/25/25 Prednisone (Prednisone) 20 Mg Tab, 20 MG PO BID, #10 MG Prov:AGUSTÍN REEVES MD 02/25/25 Fluticasone-Salmeterol (Advair Diskus 500/50) 1 Puff Ih, 1 PUFF INH BID, #1 INHALER 3 Refills Prov:AGUSTÍN REEVES MD 02/25/25 Omeprazole (Omeprazole Dr) 40 Mg Cap, 40 MG PO DAILY, #30 CAP Prov:AGUSTÍN REEVES MD 02/25/25 Montelukast Sodium (MONTELUKAST SODIUM) 10 Mg Tab, 10 MG OR DAILY, #30 TAB Prov:AGUSTÍN REEVES MD 02/25/25 Hydrocodone-Acetaminophen (Hydrocodone Bitartrate/AC 5-325 mg) 1 Tab Tab, 1 TAB PO Q8HPRN PRN for 7 Days, #21 TAB Prov:GARRETT BLANTON RATE SUPERVISOR 01/09/24 Docusate Sodium (Docusate Sodium) 100 Mg Cap, 100 MG PO BID PRN for 10 Days, #20 CAP Prov:GARRETT BLANTON RATE SUPERVISOR 01/09/24 Reported Medications Hydrocodone-Acetaminophen (Hydrocodone/Acetaminophen 10-325 mg) 1 Tab Tab, 1 TAB PO PRN, TAB 12/30/23 Cholecalciferol (D3) 50 Mcg Cap, 50 MCG PO DAILY, CAP 12/30/23 Zinc Gluconate (Zinc) 50 Mg Tab, 50 MG PO DAILY, TAB 12/30/23 Ibuprofen (Ibuprofen) 800 Mg Tab, 800 MG PO PRN, TAB 12/30/23 Amlodipine Besylate (Amlodipine Besylate) 10 Mg Tab, 10 MG PO DAILY, TAB 12/30/23 Atorvastatin Calcium (Lipitor) 10 Mg Tab, 10 MG PO DAILY, TAB 12/30/23 Sertraline Hcl (Sertraline Hcl) 50 Mg Tab, 50 MG PO DAILY, TAB 12/30/23 Losartan Potassium (Losartan Potassium) 50 Mg Tab, 50 MG PO DAILY, TAB 12/30/23 Current Medications Current Medications Medications (Trade) Dose Ordered Sig/Kennedi Route PRN Reason Start Time Stop Time Status Last Admin Nitroglycerin (Ntrostat Sublingual) 0.4 mg Q5MINP PRN SL FOR CHEST PAIN 02/22/25 14:45 Morphine Sulfate 2 mg Q30M PRN IV FOR CHEST PAIN 02/22/25 14:45 Azithromycin 250 ml @ 125 mls/hr DAILY IV 02/23/25 10:00 Ceftriaxone Sodium 50 ml @ 100 mls/hr DAILY@09 IV 02/23/25 09:00 Famotidine (Pepcid Tablet) 40 mg DAILY PO 02/22/25 15:44 02/22/25 15:52 Ondansetron HCl (Zofran) 4 mg Q4HPRN PRN IV NAUSEA / VOMITING 02/22/25 14:45 Morphine Sulfate 2 mg Q6HPRN PRN IV SEVERE PAIN (7-10 PAIN SCALE) 02/22/25 14:45 Acetaminophen (Tylenol Tablet) 650 mg Q4HP PRN PO MODERATE PAIN (4-6 PAIN SCALE) 02/22/25 14:45 02/22/25 15:40 DC Enoxaparin Sodium (Lovenox) 40 mg DAILY SC 02/23/25 10:00 Albuterol (Ventolin Medneb) 2.5 mg Q6HWA NEB 02/22/25 18:00 Docusate Sodium (Colace Capsule) 100 mg BID PRN PO FOR CONSTIPATION 02/22/25 14:45 Acetaminophen/ Hydrocodone Bitart (Tabernash 5/325MG Tab) 1 tab Q8HPRN PRN PO MODERATE PAIN (4-6 PAIN SCALE) 02/22/25 14:45 Losartan Potassium (Cozaar Tablet) 50 mg DAILY PO 02/23/25 10:00 Montelukast Sodium (Singulair Tablet) 10 mg DAILY PO 02/23/25 10:00 Sertraline HCl (Zoloft) 50 mg DAILY PO 02/23/25 10:00 Amlodipine Besylate (Norvasc Tablet) 10 mg DAILY PO 02/23/25 10:00 Acetaminophen (Tylenol Tablet) 650 mg Q4HP PRN PO MILD PAIN (1-3 PAIN SCALE) 02/22/25 15:45 Vital Signs Vital Signs Date Time Temp Pulse Resp B/P (MAP) Pulse Ox O2 Delivery O2 Flow Rate FiO2 02/22/25 20:11 83 20 140/81 (100) 96 02/22/25 15:37 97.8 0.0 21 97.8 02/22/25 13:14 Room Air* Physical Exam Gen.: Patient lying in bed in no apparent distress. On room air. Head: Normocephalic, atraumatic. Eyes: EOMI/PERRLA. Ears: Normal hearing. Normal anatomy. Neck/trachea: Trachea midline, supple. Nose: Normal external anatomy. Mouth: Moist mucous membranes. Chest: Decreased air entry bilaterally. No wheezing or rhonchi. Cardiovascular: Positive S1, positive S2. Regular rate and rhythm. Abdomen: Positive bowel sounds in all 4 quadrants. Soft, non-tender, non- distended. : Deferred. Rectal: Deferred. Skin: Warm, dry. Intact. Extremities: 2+ radial pulses bilaterally. No lower extremity edema. Neuro: Awake, alert, oriented x3. No gross motor or sensory deficits. Cranial nerves II through XII intact. Gait not assessed. Labs/Diagnostic Data Labs Test 02/22/25 16:08 02/22/25 13:04 02/22/25 12:30 Range/Units Troponin I High Sensitivity 6 </=34 ng/L White Blood Count 12.7 H 4.4-10.8 10^3/uL Red Blood Count 4.55 4.0-5.20 10^6/uL Hemoglobin 13.3 12.2-16.2 g/dL Hematocrit 38.8 36.0-46.0 % Mean Corpuscular Volume 85.3 80.0-100.0 fL Mean Corpuscular Hemoglobin 29.2 28.0-32.0 pg Mean Corpuscular Hemoglobin Concent 34.2 32.0-36.0 g/dL Red Cell Distribution Width 16.0 H 11.8-14.3 % Platelet Count 479 H 140-450 10^3/uL Mean Platelet Volume 6.9 6.9-10.8 fL Neutrophils (%) (Auto) 82.7 H 37.0-80.0 % Lymphocytes (%) (Auto) 7.2 L 10.0-50.0 % Monocytes (%) (Auto) 9.3 0.0-12.0 % Eosinophils (%) (Auto) 0.6 0.0-7.0 % Basophils (%) (Auto) 0.2 0.0-2.0 % Neutrophils # (Auto) 10.5 H 1.6-8.6 10 ^3/uL Lymphocytes # (Auto) 0.9 0.4-5.4 10 ^3/uL Monocytes # (Auto) 1.2 0-1.3 10 ^3/uL Eosinophils # (Auto) 0.1 0-0.8 10 ^3/uL Basophils # (Auto) 0 0-0.2 10 ^3/uL Nucleated Red Blood Cells 0.1 % Sodium Level 134 L 136-145 mmol/L Potassium Level 3.3 L 3.5-5.1 mmol/L Chloride Level 104 98-107 mmol/L Carbon Dioxide Level 18 L 20-31 mmol/L Anion Gap 12 5-15 Blood Urea Nitrogen 13 9-23 mg/dL Creatinine 1.19 H 0.550-1.02 mg/dL Glomerular Filtration Rate Calc 46 >90 mL/min BUN/Creatinine Ratio 10.9 10.0-20.0 Serum Glucose 131 H 74-106 mg/dL Calcium Level 8.9 8.7-10.4 mg/dL B-Type Natriuretic Peptide 216.37 0-100 pg/mL Urine Color Yellow Yellow Urine Clarity Turbid H Clear Urine pH 5.5 5.0-9.0 Urine Specific [place] 1.019 1.001-1.035 Urine Protein 1+ H Negative Urine Ketones Negative Negative Urine Blood Negative Negative /uL Urine Nitrite Negative Negative Urine Bilirubin Negative Negative Urine Urobilinogen 3 H Negative mg/dL Urine Leukocyte Esterase 3+ Negative /uL Urine RBC <1 0 - 4 /hpf Urine Microscopic WBC 13 H 0-5 /HPF Urine Squamous Epithelial Cells Few <5 /hpf Urine Calcium Oxalate Crystals Few None Seen Urine Bacteria Few H None Seen /hpf Urine Hyaline Casts Many 0 - 2 /lpf Urine Mucus Few None Seen Urine Yeast (Budding) Occasional None Seen /hpf Urine Glucose Normal Normal mg/dL Assessment Impression: Acute hypoxic respiratory failure Dependence on supplemental oxygen Acute COPD exacerbation Pneumonia, likely GNR Cough Atelectasis Hypokalemia Metabolic acidosis Seasonal allergies Plan: Currently on room air. Supplemental oxygen 2 LPM NC PRN Titrate to keep O2 sats above 92%. Pt c/o productive cough with thick mucus. Chest x-ray reviewed, multifocal opacities. Continue bronchodilators. On montelukast for allergies Continue antibiotics Send sputum cultures Incentive spirometry Pepcid for GI ppx Lovenox for DVT ppx Monitor renal function. Monitor electrolytes. Supplement as necessary. Monitor ins and outs. GI/DVT prophylaxis. Prognosis: Poor given patient's multiple co-morbidities. Rest of plan per hospitalist and other consultants. Thank you, Dr. Urias, for allowing me to participate in this patient's care. Further recommendations will depend on the patient's clinical course. Please do not hesitate to contact me if you have any questions or concerns. This medical document was created using an electronic medical record system with [employer] system. Although these documentations are being carefully reviewed, there may still be some phonetic and typographical changes. The errors are purely typographical, due to imperfection on the software program, and do not reflect any compromise in the patient's medical care. Plan discussed with: Patient, Other (RN/Dr. Urias) GERMAN WALLACE MD Feb 22, 2025 23:25
[2025-02-23] VITALS (16 sets, daily range): BP systolic 143–162; BP diastolic 65–83; PULSE 70–84; RESP 16–20; TEMP 97–98.3; O2SAT 90–99
[2025-02-23] MEDS: MORPHINE SULFATE INJ 2 MG/ml SYRG IV PRN (02:44)
[2025-02-23] MEDS: MONTELUKAST SODIUM 10 MG TAB PO SCH (10:03)
[2025-02-23] MEDS: SERTRALINE HCL 50 MG TAB PO SCH (10:03)
[2025-02-23] MEDS: AZITHROMYCIN 500MG/ 250ML 250 ML IV SCH (10:04)
[2025-02-23] MEDS: ENOXAPARIN SOD 40 MG/0.4 ML SYRINGE SC SCH (10:04)
[2025-02-23] MEDS: cefTRIAXone 1GM/50ML D5W 50 ML IV SCH (10:04)
[2025-02-23] MEDS: LOSARTAN POTASSIUM 50 MG TAB PO SCH (10:04)
[2025-02-23] MEDS: HYDROcodone-ACET 5/325MG TAB PO PRN (15:25)
[2025-02-23] MEDS: POTASSIUM EFFERVESENT TAB 25 MEQ PO ONE (15:26)
[2025-02-23] MEDS: guaiFENesin-DM 100/10mg/5ml SYR PO PRN (17:09)
--- NOTE | 2025-02-23 18:10 | DVHPN2 ---
Progress Note - Dictate Date Seen: Feb 23, 2025 Medical Necessity Reason Pt with a Central, PICC or Fol: No Subjective Clinically stable. Feels little bit better. Still having some exertional dyspnea. Evaluated by sports clerk. vital signs Vital Sign Date Time Temp Pulse Resp B/P (MAP) Pulse Ox O2 Delivery O2 Flow Rate FiO2 02/23/25 17:00 98.2 78 20 162/83 (109) 91 98.2 02/23/25 07:19 Nasal Cannula 2.0 02/23/25 07:19 28 Total Intake and Output 02/22/25 02/22/25 02/23/25 15:00 23:00 07:00 Intake Total 100 ml 0 ml Balance 100 ml 0 ml medications Current Medications Medications Dose Ordered Sig/Kennedi Route Start Time Stop Time Status Last Admin Dose Admin Nitroglycerin 0.4 mg Q5MINP PRN SL 02/22/25 14:45 Morphine Sulfate 2 mg Q30M PRN IV 02/22/25 14:45 02/23/25 02:44 2 MG Azithromycin 250 ml @ 125 mls/hr DAILY IV 02/23/25 10:00 02/23/25 10:04 125 MLS/HR Ceftriaxone Sodium 50 ml @ 100 mls/hr DAILY@09 IV 02/23/25 09:00 02/23/25 10:04 100 MLS/HR Famotidine 40 mg DAILY PO 02/22/25 15:44 02/23/25 10:02 40 MG Ondansetron HCl 4 mg Q4HPRN PRN IV 02/22/25 14:45 Morphine Sulfate 2 mg Q6HPRN PRN IV 02/22/25 14:45 Enoxaparin Sodium 40 mg DAILY SC 02/23/25 10:00 02/23/25 10:04 40 MG Albuterol 2.5 mg Q6HWA NEB 02/22/25 18:00 02/23/25 12:32 2.5 MG Docusate Sodium 100 mg BID PRN PO 02/22/25 14:45 Acetaminophen/ Hydrocodone Bitart 1 tab Q8HPRN PRN PO 02/22/25 14:45 02/23/25 15:25 1 TAB Losartan Potassium 50 mg DAILY PO 02/23/25 10:00 02/23/25 10:04 50 MG Montelukast Sodium 10 mg DAILY PO 02/23/25 10:00 02/23/25 10:03 10 MG Sertraline HCl 50 mg DAILY PO 02/23/25 10:00 02/23/25 10:03 50 MG Amlodipine Besylate 10 mg DAILY PO 02/23/25 10:00 02/23/25 10:03 10 MG Acetaminophen 650 mg Q4HP PRN PO 02/22/25 15:45 Guaifenesin/ Dextromethorphan 10 ml Q4HP PRN PO 02/23/25 16:30 02/23/25 17:09 10 ML objective Alert awake oriented x3. HEENT neck supple no JVD. Heart regular rate and rhythm S1-S2. Lungs fair air movement without any audible wheezing. Degraded breath sounds in the bases. Abdomen soft nontender positive bowel sounds. Extremities positive bowel sounds no edema. laboratory and microbiology Laboratory Tests 02/22/25 13:04 Test 02/22/25 13:04 Range/Units Serum Glucose 131 H 74-106 mg/dL Assessment/Plan To continue current management as she is on for her COPD and pneumonia. She is on room air oxygenation is normal. Encouraged activity and ambulation. If she remains stable consider discharge home tomorrow. Discussed with the patient regarding care plan. Problems(with codes): (1) COPD exacerbation (2) Respiratory failure, acute (3) CAP (community acquired pneumonia) Plan discussed with: Patient AGUSTÍN REEVES MD Feb 23, 2025 18:10
--- NOTE | 2025-02-23 22:51 | DVHPN2 ---
Progress Note - Dictate Date Seen: Feb 23, 2025 Medical Necessity Reason Pt with a Central, PICC or Fol: No Subjective Patient seen and examined at bedside. Currently on supplemental oxygen Overnight events reviewed. vital signs Vital Sign Date Time Temp Pulse Resp B/P (MAP) Pulse Ox O2 Delivery O2 Flow Rate FiO2 02/23/25 21:24 79 18 148/74 02/23/25 21:00 98.0 90 98.0 02/23/25 18:48 Room Air* 0 21 Total Intake and Output 02/22/25 02/22/25 02/23/25 15:00 23:00 07:00 Intake Total 100 ml 0 ml Balance 100 ml 0 ml medications Current Medications Medications Dose Ordered Sig/Kennedi Route Start Time Stop Time Status Last Admin Dose Admin Nitroglycerin 0.4 mg Q5MINP PRN SL 02/22/25 14:45 Morphine Sulfate 2 mg Q30M PRN IV 02/22/25 14:45 02/23/25 21:24 2 MG Azithromycin 250 ml @ 125 mls/hr DAILY IV 02/23/25 10:00 02/23/25 10:04 125 MLS/HR Ceftriaxone Sodium 50 ml @ 100 mls/hr DAILY@09 IV 02/23/25 09:00 02/23/25 10:04 100 MLS/HR Famotidine 40 mg DAILY PO 02/22/25 15:44 02/23/25 10:02 40 MG Ondansetron HCl 4 mg Q4HPRN PRN IV 02/22/25 14:45 Morphine Sulfate 2 mg Q6HPRN PRN IV 02/22/25 14:45 Enoxaparin Sodium 40 mg DAILY SC 02/23/25 10:00 02/23/25 10:04 40 MG Albuterol 2.5 mg Q6HWA NEB 02/22/25 18:00 02/23/25 18:48 2.5 MG Docusate Sodium 100 mg BID PRN PO 02/22/25 14:45 Acetaminophen/ Hydrocodone Bitart 1 tab Q8HPRN PRN PO 02/22/25 14:45 02/23/25 15:25 1 TAB Losartan Potassium 50 mg DAILY PO 02/23/25 10:00 02/23/25 10:04 50 MG Montelukast Sodium 10 mg DAILY PO 02/23/25 10:00 02/23/25 10:03 10 MG Sertraline HCl 50 mg DAILY PO 02/23/25 10:00 02/23/25 10:03 50 MG Amlodipine Besylate 10 mg DAILY PO 02/23/25 10:00 02/23/25 10:03 10 MG Acetaminophen 650 mg Q4HP PRN PO 02/22/25 15:45 Guaifenesin/ Dextromethorphan 10 ml Q4HP PRN PO 02/23/25 16:30 02/23/25 21:23 10 ML objective Gen.: Patient lying in bed in no apparent distress. On supplemental oxygen Head: Normocephalic, atraumatic. Eyes: EOMI/PERRLA. Ears: Normal hearing. Normal anatomy. Neck/trachea: Trachea midline, supple. Nose: Normal external anatomy. Mouth: Moist mucous membranes. Chest: Decreased air entry bilaterally. No wheezing or rhonchi. Cardiovascular: Positive S1, positive S2. Regular rate and rhythm. Abdomen: Positive bowel sounds in all 4 quadrants. Soft, non-tender, non- distended. : Deferred. Rectal: Deferred. Skin: Warm, dry. Intact. Extremities: 2+ radial pulses bilaterally. No lower extremity edema. Neuro: Awake, alert, oriented x3. No gross motor or sensory deficits. Cranial nerves II through XII intact. Gait not assessed. laboratory and microbiology Laboratory Tests 02/22/25 13:04 Test 02/22/25 13:04 Range/Units Serum Glucose 131 H 74-106 mg/dL Assessment/Plan Impression: Acute hypoxic respiratory failure Dependence on supplemental oxygen Acute COPD exacerbation Pneumonia, likely GNR Cough Atelectasis Hypokalemia Metabolic acidosis Seasonal allergies Events: Currently on supplemental oxygen, 2 LPM NC Taper O2 as tolerated Continue bronchodilators Continue antibiotics Follow up sputum cultures Antitussive for cough Incentive spirometry Labs and imaging reviewed. Rest of plan as noted below. Plan: Supplemental oxygen Titrate to keep O2 sats above 92%. Pt c/o productive cough with thick mucus. Chest x-ray on 02/22 reviewed, multifocal opacities. Continue bronchodilators. On montelukast for allergies Continue antibiotics F/u sputum cultures Incentive spirometry Pepcid for GI ppx Lovenox for DVT ppx Monitor renal function. Monitor electrolytes. Supplement as necessary. Monitor ins and outs. GI/DVT prophylaxis. Prognosis: Poor given patient's multiple co-morbidities. Rest of plan per hospitalist and other consultants. Thank you, Dr. Urias, for allowing me to participate in this patient's care. Further recommendations will depend on the patient's clinical course. Please do not hesitate to contact me if you have any questions or concerns. This medical document was created using an electronic medical record system with [employer]ation system. Although these documentations are being carefully reviewed, there may still be some phonetic and typographical changes. The errors are purely typographical, due to imperfection on the software program, and do not reflect any compromise in the patient's medical care. Plan discussed with: Patient, Other (DAVE Ray) GERMAN WALLACE MD Feb 23, 2025 22:51
[2025-02-24] VITALS (12 sets, daily range): BP systolic 128–152; BP diastolic 59–82; PULSE 63–72; RESP 16–20; TEMP 97.5–98; O2SAT 88–98
[2025-02-24 09:51] LABS: COVID19 ANTIGEN SOFIA FIA NEGATIVE (NEGATIVE)
--- NOTE | 2025-02-24 12:27 | DVHPN2 ---
Progress Note - Dictate Date Seen: Feb 24, 2025 Medical Necessity Reason Pt with a Central, PICC or Fol: No vital signs Vital Sign Date Time Temp Pulse Resp B/P (MAP) Pulse Ox O2 Delivery O2 Flow Rate FiO2 02/24/25 10:23 138/73 02/24/25 09:17 98.0 65 17 94 98.0 02/24/25 08:05 Nasal Cannula* 2 28 Total Intake and Output 02/23/25 02/23/25 02/24/25 15:00 23:00 07:00 Intake Total 250 ml 1120 ml 360 ml Output Total 400 ml Balance 250 ml 720 ml 360 ml medications Current Medications Medications Dose Ordered Sig/Kennedi Route Start Time Stop Time Status Last Admin Dose Admin Nitroglycerin 0.4 mg Q5MINP PRN SL 02/22/25 14:45 Morphine Sulfate 2 mg Q30M PRN IV 02/22/25 14:45 02/23/25 21:24 2 MG Azithromycin 250 ml @ 125 mls/hr DAILY IV 02/23/25 10:00 02/24/25 10:19 125 MLS/HR Ceftriaxone Sodium 50 ml @ 100 mls/hr DAILY@09 IV 02/23/25 09:00 02/24/25 08:54 100 MLS/HR Famotidine 40 mg DAILY PO 02/22/25 15:44 02/24/25 10:23 40 MG Ondansetron HCl 4 mg Q4HPRN PRN IV 02/22/25 14:45 Morphine Sulfate 2 mg Q6HPRN PRN IV 02/22/25 14:45 Enoxaparin Sodium 40 mg DAILY SC 02/23/25 10:00 02/24/25 10:24 40 MG Albuterol 2.5 mg Q6HWA NEB 02/22/25 18:00 02/24/25 07:31 2.5 MG Docusate Sodium 100 mg BID PRN PO 02/22/25 14:45 Acetaminophen/ Hydrocodone Bitart 1 tab Q8HPRN PRN PO 02/22/25 14:45 02/23/25 15:25 1 TAB Losartan Potassium 50 mg DAILY PO 02/23/25 10:00 02/24/25 10:21 50 MG Montelukast Sodium 10 mg DAILY PO 02/23/25 10:00 02/24/25 10:20 10 MG Sertraline HCl 50 mg DAILY PO 02/23/25 10:00 02/24/25 10:22 50 MG Amlodipine Besylate 10 mg DAILY PO 02/23/25 10:00 02/24/25 10:23 10 MG Acetaminophen 650 mg Q4HP PRN PO 02/22/25 15:45 Guaifenesin/ Dextromethorphan 10 ml Q4HP PRN PO 02/23/25 16:30 02/23/25 21:23 10 ML laboratory and microbiology Laboratory Tests 02/22/25 13:04 Test 02/22/25 13:04 Range/Units Serum Glucose 131 H 74-106 mg/dL Assessment/Plan Acute hypoxic respiratory failure Dependence on supplemental oxygen Acute COPD exacerbation Pneumonia, likely GNR Cough Atelectasis Hypokalemia Metabolic acidosis Seasonal allergies Events: Currently on supplemental oxygen, 2 LPM NC Taper O2 as tolerated Continue bronchodilators Continue antibiotics Follow up sputum cultures Antitussive for cough Incentive spirometry Labs and imaging reviewed. Rest of plan as noted below. Plan: Supplemental oxygen Titrate to keep O2 sats above 92%. Pt c/o productive cough with thick mucus. Chest x-ray on 02/22 reviewed, multifocal opacities. Continue bronchodilators. On montelukast for allergies Continue antibiotics F/u sputum cultures Incentive spirometry Pepcid for GI ppx Lovenox for DVT ppx Monitor renal function. Monitor electrolytes. Supplement as necessary. Monitor ins and outs. GI/DVT prophylaxis. Plan discussed with: Patient SHELTON ROBISON MD Feb 24, 2025 12:27
[2025-02-24] MEDS: IPRATROPIUM BROM 0.5 MG/2.5ML INH SOL NEB SCH (19:14)
[2025-02-24] MEDS: ACETYLCYSTEINE 10 %(100MG/ML) SOL 4ML NEB SCH (19:14)
[2025-02-24] MEDS: ACETAMINOPHEN 325 MG TAB PO PRN (20:31)
--- NOTE | 2025-02-24 22:41 | DVHPN2 ---
Progress Note - Dictate Date Seen: Feb 24, 2025 Medical Necessity Reason Pt with a Central, PICC or Fol: No Subjective Clinically stable. Having cough with phlegm at times. vital signs Vital Sign Date Time Temp Pulse Resp B/P (MAP) Pulse Ox O2 Delivery O2 Flow Rate FiO2 02/24/25 19:23 66 16 98 02/24/25 19:15 Nasal Cannula* 1 24 02/24/25 17:09 97.6 146/74 (98) 97.6 Total Intake and Output 02/23/25 02/23/25 02/24/25 15:00 23:00 07:00 Intake Total 250 ml 1120 ml 360 ml Output Total 400 ml Balance 250 ml 720 ml 360 ml medications Current Medications Medications Dose Ordered Sig/Kennedi Route Start Time Stop Time Status Last Admin Dose Admin Nitroglycerin 0.4 mg Q5MINP PRN SL 02/22/25 14:45 Morphine Sulfate 2 mg Q30M PRN IV 02/22/25 14:45 02/23/25 21:24 2 MG Azithromycin 250 ml @ 125 mls/hr DAILY IV 02/23/25 10:00 02/24/25 10:19 125 MLS/HR Ceftriaxone Sodium 50 ml @ 100 mls/hr DAILY@09 IV 02/23/25 09:00 02/24/25 08:54 100 MLS/HR Famotidine 40 mg DAILY PO 02/22/25 15:44 02/24/25 10:23 40 MG Ondansetron HCl 4 mg Q4HPRN PRN IV 02/22/25 14:45 Morphine Sulfate 2 mg Q6HPRN PRN IV 02/22/25 14:45 Enoxaparin Sodium 40 mg DAILY SC 02/23/25 10:00 02/24/25 10:24 40 MG Albuterol 2.5 mg Q6HWA NEB 02/22/25 18:00 02/24/25 19:14 2.5 MG Docusate Sodium 100 mg BID PRN PO 02/22/25 14:45 Acetaminophen/ Hydrocodone Bitart 1 tab Q8HPRN PRN PO 02/22/25 14:45 02/24/25 16:32 1 TAB Losartan Potassium 50 mg DAILY PO 02/23/25 10:00 02/24/25 10:21 50 MG Montelukast Sodium 10 mg DAILY PO 02/23/25 10:00 02/24/25 10:20 10 MG Sertraline HCl 50 mg DAILY PO 02/23/25 10:00 02/24/25 10:22 50 MG Amlodipine Besylate 10 mg DAILY PO 02/23/25 10:00 02/24/25 10:23 10 MG Acetaminophen 650 mg Q4HP PRN PO 02/22/25 15:45 02/24/25 20:31 650 MG Guaifenesin/ Dextromethorphan 10 ml Q4HP PRN PO 02/23/25 16:30 02/24/25 16:31 10 ML Ipratropium Prole 0.5 mg Q6HWA NEB 02/24/25 18:00 02/24/25 19:14 0.5 MG Acetylcysteine 100 mg Q6HR NEB 02/24/25 18:00 02/24/25 19:14 100 MG objective Alert awake oriented x3. HEENT neck supple no JVD. Heart regular rate and rhythm S1-S2. Lungs fair air movement without any audible wheezing. Degraded breath sounds in the bases. Abdomen soft nontender positive bowel sounds. Extremities positive bowel sounds no edema. laboratory and microbiology Laboratory Tests 02/22/25 13:04 Test 02/22/25 13:04 Range/Units Serum Glucose 131 H 74-106 mg/dL Assessment/Plan She is clinically stable. Still having some productive cough with the end expiratory wheezing. Therefore I will add Mucomyst as a mucolytic agent. Continue current steroids antibiotics and nebulizer treatments. Follow up labs and x-ray in the morning. Otherwise further clinical management per clinical course. Discussed with the patient and nurse regarding care plan Problems(with codes): (1) Respiratory failure, acute (2) COPD exacerbation (3) CAP (community acquired pneumonia) Plan discussed with: Patient AGUSTÍN REEVES MD Feb 24, 2025 22:41
[2025-02-25] VITALS (12 sets, daily range): BP systolic 137–149; BP diastolic 57–73; PULSE 60–76; RESP 16–20; TEMP 98.2–98.4; O2SAT 91–98
[2025-02-25 07:29] LABS: Hemoglobin 11.9 g/dL (12.2-16.2)
[2025-02-25 07:31] LABS: Hematocrit 34.9 % (36.0-46.0); Mean Corpuscular Hemoglobin 28.8 pg (28.0-32.0); Mean Corpuscular Volume 84.7 fL (80.0-100.0); Nucleated Red Blood Cells % 0.0 %
[2025-02-25 07:44] LABS: Anion Gap 13 (5-15); Carbon Dioxide 21 mmol/L (20-31); Potassium 3.7 mmol/L (3.5-5.1); Sodium 141 mmol/L (136-145)
[2025-02-25 07:45] LABS: Calcium 8.9 mg/dL (8.7-10.4)
[2025-02-25 07:50] LABS: BUN/Creatinine Ratio 17.1 (10.0-20.0); Blood Urea Nitrogen 13 mg/dL (9-23); Glucose 76 mg/dL (74-106)
[2025-02-25 07:51] LABS: Chloride 107 mmol/L (98-107); Magnesium 2.2 mg/dL (1.6-2.6)
--- NOTE | 2025-02-25 13:44 | DVH ---
CHEST RADIOGRAPH Indication: pneumonia Technique: Single frontal view of the chest was obtained Comparison: XY CHEST TWO VIEWS ROUTINE on DOS: 02/22/25, CT CT ANGIO CHEST CONTRAST on DOS: 01/09/24 FINDINGS: Lines and Tubes: . Changes of the right scapula with internal fixation device in place. Lungs: Worsening airspace disease in the right upper lobe. Decreased inspiratory effort. Pleura: No effusion. No pneumothorax. Cardiomediastinal contours: Stable Bones: No acute osseous abnormality. IMPRESSION: 1. Worsening airspace disease right upper lobe 2. Or inspiratory effort HS:Y
[2025-02-25] MEDS ORDERED: OMEP-448 PO (15:53)
[2025-02-25] MEDS ORDERED: FLUT500M2 INH (15:53)
[2025-02-25] MEDS ORDERED: PRED20TA2 PO (15:53)
[2025-02-25] MEDS ORDERED: MONT-8 OR (15:53)
[2025-02-25] MEDS ORDERED: CEFD300C2 PO (15:53)
[2025-02-25] MEDS ORDERED: DEXT1SYP9 PO (15:55)
--- NOTE | 2025-02-25 15:55 | DVHDS2 ---
Discharge Summary Date of Admission Feb 22, 2025 at 14:31 Date of Discharge: Feb 25, 2025 Labs/Diagnostic Data: Laboratory Results Test 02/25/25 04:20 02/23/25 10:44 02/22/25 16:08 02/22/25 13:04 White Blood Count 10.8 10^3/uL (4.4-10.8) Red Blood Count 4.12 10^6/uL (4.0-5.20) Hemoglobin 11.9 g/dL (12.2-16.2) Hematocrit 34.9 % (36.0-46.0) Mean Corpuscular Volume 84.7 fL (80.0-100.0) Mean Corpuscular Hemoglobin 28.8 pg (28.0-32.0) Mean Corpuscular Hemoglobin Concent 34.0 g/dL (32.0-36.0) Red Cell Distribution Width 16.1 % (11.8-14.3) Platelet Count 566 10^3/uL (140-450) Mean Platelet Volume 7.3 fL (6.9-10.8) Neutrophils (%) (Auto) 70.3 % (37.0-80.0) Lymphocytes (%) (Auto) 17.2 % (10.0-50.0) Monocytes (%) (Auto) 9.4 % (0.0-12.0) Eosinophils (%) (Auto) 2.3 % (0.0-7.0) Basophils (%) (Auto) 0.8 % (0.0-2.0) Neutrophils # (Auto) 7.6 10 ^3/uL (1.6-8.6) Lymphocytes # (Auto) 1.9 10 ^3/uL (0.4-5.4) Monocytes # (Auto) 1.0 10 ^3/uL (0-1.3) Eosinophils # (Auto) 0.2 10 ^3/uL (0-0.8) Basophils # (Auto) 0.1 10 ^3/uL (0-0.2) Nucleated Red Blood Cells 0.0 % Sodium Level 141 mmol/L (136-145) Potassium Level 3.7 mmol/L (3.5-5.1) Chloride Level 107 mmol/L (98-107) Carbon Dioxide Level 21 mmol/L (20-31) Anion Gap 13 (5-15) Blood Urea Nitrogen 13 mg/dL (9-23) Creatinine 0.76 mg/dL (0.550-1.02) Glomerular Filtration Rate Calc 79 mL/min (>90) BUN/Creatinine Ratio 17.1 (10.0-20.0) Serum Glucose 76 mg/dL (74-106) Calcium Level 8.9 mg/dL (8.7-10.4) Magnesium Level 2.2 mg/dL (1.6-2.6) Influenza Type A Antigen Negative (Negative) Influenza Type B Antigen Negative (Negative) Troponin I High Sensitivity 6 ng/L (</=34) B-Type Natriuretic Peptide 216.37 pg/mL (0-100) Test 02/22/25 12:30 02/22/25 08:18 Urine Color Yellow (Yellow) Urine Clarity Turbid (Clear) Urine pH 5.5 (5.0-9.0) Urine Specific [place] 1.019 (1.001-1.035) Urine Protein 1+ (Negative) Urine Ketones Negative (Negative) Urine Blood Negative /uL (Negative) Urine Nitrite Negative (Negative) Urine Bilirubin Negative (Negative) Urine Urobilinogen 3 mg/dL (Negative) Urine Leukocyte Esterase 3+ /uL (Negative) Urine RBC <1 /hpf (0 - 4) Urine Microscopic WBC 13 /HPF (0-5) Urine Squamous Epithelial Cells Few /hpf (<5) Urine Calcium Oxalate Crystals Few (None Seen) Urine Bacteria Few /hpf (None Seen) Urine Hyaline Casts Many /lpf (0 - 2) Urine Mucus Few (None Seen) Urine Yeast (Budding) Occasional /hpf (None Urine Glucose Normal mg/dL (Normal) SARS-CoV-2 Antigen (Rapid) Negative (NEGATIVE) Other Laboratory Tests 02/25/25 04:20 Brief Hx & Hospital Course: This is an 79-year-old female who comes in with chief complaint of shortness a breath with cough and chest pressure. The patient was also having headache. The patient has had a fever off and on for the past two weeks. And the highest temperature was measured at 102.9. The patient's cough is productive with yellow sputum. She denies any recent travel out of the country. She denies any nausea or vomiting. The patient is also having a generalized headache. She was able to ambulate into the emergency department's without any difficulty. 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 Patient received antibiotics steroids breathing treatments. Her symptoms have improved. She is feeling better back to baseline normal status. Her respiratory cultures are growing [place]. Patient is advised to continue the medications as she is prescribed and have him follow up with PCP and all terrain vehicle racer as needed. Patient verbalized understanding of this given clinically stable she has agreed to discharge home. Condition at Discharge: Stable Final Diagnosis/Problems List Community-acquired pneumonia UTI Secondary Diagnosis: Acute hypoxic respiratory failure Dependence on supplemental oxygen Acute COPD exacerbation Pneumonia, likely GNR Cough Atelectasis Hypokalemia Metabolic acidosis Seasonal allergies Discharge Disposition: Home Discharge Instruct/Medications Diet: Consistent carbohydrate, Cardiac 2g Na,low cholest Activity: No Restrictions, As Tolerated Follow Up/Referral: Primary care physician after two weeks follow up pneumonia and to repeat chest x-ray after one month. Medications: As prescribed and home medications per discharge med reconciliation list/as you were taking. Scheduled Amlodipine Besylate (Amlodipine Besylate), 10 MG PO DAILY, (Reported) Atorvastatin Calcium (Lipitor), 10 MG PO DAILY, (Reported) Cefdinir (Cefdinir), 1 CAP PO BID Cholecalciferol (D3), 50 MCG PO DAILY, (Reported) Fluticasone-Salmeterol (Advair Diskus 500/50), 1 PUFF INH BID Hydrocodone-Acetaminophen (Hydrocodone/Acetaminophen 10-325 mg), 1 TAB PO PRN, (Reported) Ibuprofen (Ibuprofen), 800 MG PO PRN, (Reported) Losartan Potassium (Losartan Potassium), 50 MG PO DAILY, (Reported) Montelukast Sodium (Montelukast Sodium), 10 MG OR DAILY Omeprazole (Omeprazole Dr), 40 MG PO DAILY Prednisone (Prednisone), 20 MG PO BID Sertraline Hcl (Sertraline Hcl), 50 MG PO DAILY, (Reported) Zinc Gluconate (Zinc), 50 MG PO DAILY, (Reported) Scheduled PRN Dextromethorphan-Guaifenesin (Robitussin-Dm), 10 ML PO Q6HPRN PRN Docusate Sodium (Docusate Sodium), 100 MG PO BID PRN Hydrocodone-Acetaminophen (Hydrocodone Bitartrate/AC 5-325 mg), 1 TAB PO Q8HPRN PRN Discharge Statement: "Patient was advised to return to the ER or call 911 if any headaches, dizziness, shortness of breath, chest pain, abdominal pain, bleeding, fevers, or worsening of medical condition. Patient was counseled about treatment plan, medications, possible side effects, patientverbalized understanding. All questions were answered to the best of my ability. This discharge took greater then 30 minutes in planning, reviewing documentation, counseling the patient, and discussing with other team members." ASSESSMENT ASSESSMENT Assessment Community-acquired pneumonia AGUSTÍN REEVES MD Feb 25, 2025 15:55
--- NOTE | 2025-02-25 17:25 | DVHPN2 ---
Progress Note - Dictate Date Seen: Feb 25, 2025 Medical Necessity Reason Pt with a Central, PICC or Fol: No vital signs Vital Sign Date Time Temp Pulse Resp B/P (MAP) Pulse Ox O2 Delivery O2 Flow Rate FiO2 02/25/25 13:00 98.2 68 17 144/73 (96) 92 98.2 02/25/25 11:30 Room Air 0.0 02/25/25 11:30 21 Total Intake and Output 02/24/25 02/24/25 02/25/25 15:00 23:00 07:00 Intake Total 420 ml 400 ml 400 ml Balance 420 ml 400 ml 400 ml medications Current Medications Medications Dose Ordered Sig/Kennedi Route Start Time Stop Time Status Last Admin Dose Admin Nitroglycerin 0.4 mg Q5MINP PRN SL 02/22/25 14:45 Morphine Sulfate 2 mg Q30M PRN IV 02/22/25 14:45 02/23/25 21:24 2 MG Azithromycin 250 ml @ 125 mls/hr DAILY IV 02/23/25 10:00 02/25/25 09:45 125 MLS/HR Ceftriaxone Sodium 50 ml @ 100 mls/hr DAILY@09 IV 02/23/25 09:00 02/25/25 07:59 100 MLS/HR Famotidine 40 mg DAILY PO 02/22/25 15:44 02/25/25 07:56 40 MG Ondansetron HCl 4 mg Q4HPRN PRN IV 02/22/25 14:45 Morphine Sulfate 2 mg Q6HPRN PRN IV 02/22/25 14:45 Enoxaparin Sodium 40 mg DAILY SC 02/23/25 10:00 02/25/25 08:01 40 MG Albuterol 2.5 mg Q6HWA NEB 02/22/25 18:00 02/25/25 11:30 2.5 MG Docusate Sodium 100 mg BID PRN PO 02/22/25 14:45 Acetaminophen/ Hydrocodone Bitart 1 tab Q8HPRN PRN PO 02/22/25 14:45 02/25/25 07:56 1 TAB Losartan Potassium 50 mg DAILY PO 02/23/25 10:00 02/25/25 07:59 50 MG Montelukast Sodium 10 mg DAILY PO 02/23/25 10:00 02/25/25 07:57 10 MG Sertraline HCl 50 mg DAILY PO 02/23/25 10:00 02/25/25 07:59 50 MG Amlodipine Besylate 10 mg DAILY PO 02/23/25 10:00 02/25/25 07:57 10 MG Acetaminophen 650 mg Q4HP PRN PO 02/22/25 15:45 02/24/25 20:31 650 MG Guaifenesin/ Dextromethorphan 10 ml Q4HP PRN PO 02/23/25 16:30 02/24/25 16:31 10 ML Ipratropium [place] 0.5 mg Q6HWA NEB 02/24/25 18:00 02/25/25 11:30 0.5 MG Acetylcysteine 100 mg Q6HR NEB 02/24/25 18:00 02/25/25 11:30 100 MG laboratory and microbiology Laboratory Tests 02/25/25 04:20 Test 02/25/25 04:20 Range/Units Serum Glucose 76 74-106 mg/dL Assessment/Plan Acute hypoxic respiratory failure Dependence on supplemental oxygen Acute COPD exacerbation Pneumonia, likely GNR Cough Atelectasis Hypokalemia Metabolic acidosis Seasonal allergies Events: Low oxygen requirements On 2 liters nasal cannula No acute events Labs and imaging reviewed Plan: Supplemental oxygen Titrate to keep O2 sats above 92%. Incentive spirometry Continue bronchodilators. On montelukast for allergies Continue antibiotics F/u sputum cultures Incentive spirometry Pepcid for GI ppx Lovenox for DVT ppx Monitor renal function. Monitor electrolytes. Supplement as necessary. Monitor ins and outs. GI/DVT prophylaxis. Dietary Evaluation Review Comments: 1) Continue cardiac diet 2) Encourage optimal PO intake 3) Follow-up with cardiology and pulmonology 4) Continue to monitor I&O, labs, and skin integrity Expected Outcomes/Goals: 1) appetite and labs to improve 2) f/u in 3-5 days Plan discussed with: Patient SHELTON ROBISON MD Feb 25, 2025 17:25
--- NOTE | 2025-02-27 09:12 | ECG ---
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
== END 2025-02-25 18:17 | disposition home or self-care (01) | DRG 177 ==
LOC: ER 12:25 → OVERFLOW 14:31 → WEST WING 02-23 00:46
PROVIDERS: ADMIT Hospitalist; ATTEND Hospitalist
DX: J15.69 Pneumonia due to other Gram-negative bacteria (principal); J96.01 Acute respiratory failure with hypoxia; E87.20 Acidosis, unspecified; J44.1 Chronic obstructive pulmonary disease with (acute) exacerbation; J44.0 Chronic obstructive pulmonary disease with (acute) lower respiratory infection; N39.0 Urinary tract infection, site not specified; J15.9 Unspecified bacterial pneumonia; J30.2 Other seasonal allergic rhinitis; I10 Essential (primary) hypertension; E87.6 Hypokalemia; E78.5 Hyperlipidemia, unspecified; Z79.1 Long term (current) use of non-steroidal anti-inflammatories (NSAID); Z79.899 Other long term (current) drug therapy; Z99.81 Dependence on supplemental oxygen; Z90.710 Acquired absence of both cervix and uterus; Z80.0 Family history of malignant neoplasm of digestive organs
CPT/HCPCS: 36415; 71045; 71046; 80048; 81001; 83735; 83880; 84484; 85025; 87070; 87077; 87205; 87426; 87804; 93005; 94640; 96365; 96375; 97110; 97116; 97163; 97530; 99291; G0378; J1956